=== PATIENT | female | born 1945 | race Caucasian/White ===

== ENCOUNTER 2016-09-18 12:40 | Inpatient (IN) | payer MEDICARE, OTHER ==
[2016-09-18] VITALS (11 sets, daily range): BP systolic 96–151; BP diastolic 45–76
[~2016-09-18] VITALS: Ht 157.5 cm; Wt 118.5 kg
[2016-09-18 13:22] LABS: BASO % 1 % (0-3); EOS % 3 % (0-3); HEMATOCRIT 32.5 % (36.0-47.0); HEMOGLOBIN 10.3 g/dL (12.0-15.5); LYMPH # 1.5 x10^3/uL (1.0-4.8); LYMPH % 28 % (24-48); MEAN CORPUSCULAR HEMOGLOBIN 28 pg (25-35); MEAN CORPUSCULAR HGB CONC 32 g/dL (31-37); MEAN CORPUSCULAR VOLUME 89 fL (79-100); MONO % 8 % (0-9); NEUT % 61 % (31-73); PLATELET COUNT 61 x10^3/uL (140-400); RED BLOOD COUNT 3.67 x10^6/uL (3.50-5.40); WHITE BLOOD COUNT 5.6 x10^3/uL (4.0-11.0)
[2016-09-18 13:26] LABS: CALCIUM 9.7 mg/dL (8.5-10.1); CREATININE 0.9 mg/dL (0.6-1.0); GFR 61.5; POTASSIUM 4.5 mmol/L (3.5-5.1)
[2016-09-18 13:33] LABS: ALBUMIN 3.1 g/dL (3.4-5.0); ALBUMIN/GLOBULIN RATIO 0.8 (1.0-1.7); TOTAL BILIRUBIN 0.5 mg/dL (0.2-1.0)
[2016-09-18 13:40] LABS: INR 1.3 (0.8-1.1)
[2016-09-18] MEDS ORDERED: CONTRAST GIVEN MC PRN (14:45)
[2016-09-18] MEDS ORDERED: IOHEXOL 350 MG/ML 100ML VIAL. IV ONE (15:00)
--- NOTE | 2016-09-18 15:07 | RAD ---
Indication bleeding from the ventral abdominal wall near the umbilicus. Contrast imaging was performed. The examination was obtained during the arterial phase. Images were reformatted in the coronal and sagittal planes. Volume rendered images were also generated and reviewed. No oral contrast was administered. No prior imaging is available. 90 cc of Omnipaque 300 was administered intravenously The lung bases are clear. The liver appears unremarkable. Clips are noted in the gallbladder fossa. There is splenomegaly. The pancreas adrenal glands and kidneys appear normal. A focal mass inflammatory process or acute finding in the abdomen is not seen. The transverse colon abuts the ventral abdominal wall but, according to the ICU nurse caring for the patient, does not erode through the subcutaneous tissues and there is no open wound reported. There is a slightly prominent small venous vessel that communicates with the umbilicus and may be the source of bleeding although active bleeding into the soft tissues is not seen and no definite arterial vessel is seen in the area of reported bleeding in the abdominal wall. Bowman catheter is noted in the pelvis. A focal mass or inflammatory process in the pelvis is not seen. IMPRESSION: Splenomegaly. Slightly prominent vein near the umbilicus in the reported area of bleeding in the anterior abdominal wall. No definite arterial abnormality seen PQRS Compliance Statement: One or more of the following individualized dose reduction techniques were utilized for this examination: 1. Automated exposure control 2. Adjustment of the mA and/or kV according to patient size 3. Use of iterative reconstruction technique
[2016-09-18] MEDS ORDERED: SODI75SP NS (15:54)
[2016-09-18] MEDS ORDERED: ACET500T68 PO (15:54)
[2016-09-18] MEDS ORDERED: TEMA15CA PO (15:55)
[2016-09-18] MEDS ORDERED: MAG355OR17 PO (15:55)
[2016-09-18] MEDS ORDERED: BENZ1LOZ48 MM (15:55)
[2016-09-18] MEDS ORDERED: ALLO300T PO (15:55)
[2016-09-18] MEDS ORDERED: TRAZ100T12 PO (15:55)
[2016-09-18] MEDS ORDERED: ACET325T21 PO (15:55)
[2016-09-18] MEDS ORDERED: CHOL20004 PO (15:55)
[2016-09-18] MEDS ORDERED: MULT-207 PO (15:55)
[2016-09-18] MEDS ORDERED: BUSP15TA PO (15:55)
[2016-09-18] MEDS ORDERED: OXYC5CAP3 PO (15:55)
[2016-09-18] MEDS ORDERED: LOPE2CAP PO (15:55)
[2016-09-18] MEDS ORDERED: MAGN400T22 PO (15:55)
[2016-09-18] MEDS ORDERED: DULO30CA43 PO (15:55)
[2016-09-18] MEDS ORDERED: GABA600T2 PO (15:55)
[2016-09-18] MEDS ORDERED: DULO60CA44 PO (15:55)
[2016-09-18] MEDS ORDERED: RISP0.253 PO (15:55)
[2016-09-18] MEDS ORDERED: LORA0.5T PO (15:55)
[2016-09-18] MEDS ORDERED: CALC625T44 PO (15:55)
[2016-09-18] MEDS ORDERED: CHOL4POW2 PO (15:55)
[2016-09-18] MEDS ORDERED: GUAI5SYR PO (15:55)
[2016-09-18] MEDS ORDERED: FAMO20TA5 PO (15:55)
[2016-09-18] MEDS ORDERED: DIPH1TAB PO (15:55)
[2016-09-18] MEDS ORDERED: NYST15CR TP (15:55)
[2016-09-18] MEDS ORDERED: MAGN2400 PO (15:55)
[2016-09-18] MEDS ORDERED: DEXT1DRO7 OP (15:55)
[2016-09-18] MEDS ORDERED: SIME80TA14 PO (15:55)
[2016-09-18] MEDS ORDERED: INSU100C SQ ×2 (17:05)
[2016-09-18] MEDS ORDERED: INSU100V13 SQ (17:05)
[2016-09-18] MEDS ORDERED: DEXTROSE 50% 25 GM / 50ML DISP.SYRIN. IV PRN (17:15)
[2016-09-19] VITALS (9 sets, daily range): BP systolic 11–159; BP diastolic 48–72
[2016-09-19] MEDS ORDERED: ACETAMINOPHEN 325 MG TABLET. PO PRN (02:45)
[2016-09-19] MEDS: INSULIN ASPART 300 UNITS/3 ML INSULN.PEN SQ SCH ×4 (08:14→21:10)
--- NOTE | 2016-09-19 08:27 | PDOC2 ---
CONSULT Date of Consult Date of Consult DATE: 09/19/16 TIME: 08:19 Reason for Consult Reason for Consult: abdominal wall bleeding Referring Physician Referring Physician: Dr Muro Identification/Chief Complaint Chief Complaint bleeding Source Source: Chart review, Patient History of Present Illness Reason for Visit: Admitted from [facility]--attempted BM on stool, had a pinpoint brisk bleeding from abdomen, pressure applied and transferred to [facility]. Currently in ICU, sitting up in chair and no further bleeding. She has had multiple abdominal surgeries in the past and a very scarred abdomen, denies abdominal pain. No emesis, reports some nausea yesterday Past Medical History Past Medical History Multiple medical problems including morbidly obese, chronic kidney disease, Crohn's disease, degenerative disk disease with chronic pain, chronic use of narcotics, diabetic neuropathy, type 2 diabetes, history of head injury, hypersplenism, hypertension, lumbar spinal stenosis, hyperlipidemia, nephrolithiasis, osteoarthritis, vitamin B12 deficiency, pancytopenia at a time and thrombocytopenia Past Surgical History Past Surgical History Extensive total abdominal hysterectomy, bilateral salpingo-oophorectomy, cholecystectomy, breast biopsy, removal of liver abscesses, colonoscopy, small intestine surgery, ventral hernia repair with mesh, urethral meatoplasty, excision of soft tissue from left forearm, cystoscopy with dilatation, venogram , total knee arthroplasty, fine needle aspiration of the thyroid, tonsillectomy and appendectomy Family History Family History: Family History Unknown Social History No ALCOHOL: none Drugs: None Lives: Prison Current Medications Current Medications Current Medications Iohexol (Omnipaque 350 Mg/ml) 90 ml 1X ONCE IV Last administered on 09/18/16 15:26; Start 09/18/16 at 15:00; Stop 09/18/16 at 15:01; Status DC Info (Do NOT chart on this entry -- for MONITORING) 1 each PRN DAILY PRN MC SEE COMMENTS; Start 09/18/16 at 14:45; Stop 09/20/16 at 14:44 Insulin Aspart (Novolog) 0-5 UNITS TIDWMEALS SQ Last administered on 09/19/16 08:14; Start 09/19/16 at 08:00 Dextrose 12.5 gm PRN Q15MIN PRN IV SEE COMMENTS; Start 09/18/16 at 17:15 Acetaminophen (Tylenol) 650 mg PRN Q6HRS PRN PO MILD PAIN / TEMP Last administered on 09/19/16t 02:51; Start 09/19/16 at 02:45 Active Scripts Active Reported Levemir (Insulin Detemir) 100 Unit/1 Ml Vial 48 Unit SQ BID Humalog (Insulin Lispro) 100 Unit/1 Ml Cartridge 10 Unit SQ HS Humalog (Insulin Lispro) 100 Unit/1 Ml Cartridge 18 Unit SQ TIDAC Trazodone Hcl 100 Mg Tablet 1 Tab PO QHS Temazepam 15 Mg Capsule 1 Cap PO QHS Simethicone 80 Mg Tab.chew 80 Mg PO PRN Q6HRS PRN Risperidone 0.25 Mg Tablet 0.25 Mg PO BID Artificial Tears (Dextran 70/Hypromellose) 1 Each Droperette 1 Each OP TID PRN PRN Oxycodone Hcl 5 Mg Capsule 5 Mg PO PRN Q8HRS PRN Nystatin 15 Gm Cream..g. 1 Elvis TP BID Multi Complete-Iron Tablet (Multivitamin/Iron/Folic Acid) 1 Each Tablet 1 Each PO DAILY Mag-Oxide (Magnesium Oxide) 400 Mg Tablet 1 Tab PO TIDWMEALS Milk Of Magnesia (Magnesium Hydroxide) 2,400 Mg/10 Ml Oral.susp 2,400 Mg PO PRN QHS PRN Advanced Antacid Liquid (Mag Hydrox/Al Hydrox/Simeth) 355 Ml Oral.susp 15 Ml PO PRN AFTMEAL PRN Lorazepam 0.5 Mg Tablet 0.5 Mg PO PRN Q6HRS PRN Loperamide (Loperamide Hcl) 2 Mg Capsule 2 Mg PO QID Guaifenesin Dm Syrup (Guaifenesin/Dextromethorphan) 5 Ml Syrup 10 Ml PO PRN Q4HRS PRN Gabapentin 600 Mg Tablet 600 Mg PO TID Famotidine 20 Mg Tablet 20 Mg PO BID Duloxetine Hcl 60 Mg Capsule.dr 60 Mg PO DAILY Duloxetine Hcl 30 Mg Capsule.dr 30 Mg PO DAILY Lomotil Tablet (Diphenoxylate Hcl/Atropine) 1 Each Tablet 2 Tab PO QIDPRN PRN Cholestyramine Packet (Cholestyramine (With Sugar)) 4 Gm Powd.pack 4 Gm PO BID Vitamin D-3 (Cholecalciferol (Vitamin D3)) 2,000 Unit Capsule 1,000 Unit PO DAILY Fiber-Tabs (Calcium Polycarbophil) 625 Mg Tablet 625 Mg PO TID Buspirone Hcl 15 Mg Tablet 1 Tab PO TID Cepacol Sore Throat Lozenge (Benzocaine/Menthol) 1 Each Lozenge 1 Each MM PRN PRN Allopurinol 300 Mg Tablet 1 Tab PO DAILY Acetaminophen 325 Mg Tablet 325 Mg PO PRN PRN Acetaminophen 500 Mg Tablet 2 Tab PO DAILY Nasa Mist Saline [place] (Sodium Chloride/Sodium Bicarb) 75 Ml [place] 75 Ml NS PRN PRN Allergies Allergies: Coded Allergies: Penicillins (Verified Allergy, Intermediate, 09/18/16) adhesive tape (Verified Allergy, Intermediate, 09/18/16) meperidine (Verified Allergy, Intermediate, 09/18/16) ROS General: No: Chills, Other (fevers) PSYCHOLOGICAL ROS: No: Anxiety, Depression Eyes: No Blurry vision, No Double vision HEENT: No: Heacaches, Sore Throat Hematological and Lymphatic: YES: Other (see hpi) Respiratory: No: Cough, Shortness of breath Cardiovascular: No Chest Pain, No Palpitations Genitourinary: No Dysuria, No Hematuria Musculoskeletal: No Joint Pain, No Muscle Pain Neurological: Yes Memory Loss, Yes Numbness/Tingling Skin: No Pruritus, No Rash Physical Exam General: Alert, Cooperative, No acute distress HEENT: Atraumatic, PERRLA Lungs: Clear to auscultation, Normal air movement Heart: Regular rate, Normal S1, Normal S2, No murmurs Abdomen: Soft, Other (ND, NTTP, obese abdomen with significant scarring, visible veins in scars, no bleeding) Extremities: No clubbing, No cyanosis Skin: No rashes, No breakdown Neuro: Normal speech, Sensation intact Psych/Mental Status: Mental status NL, Mood NL MUSCULOSKELETAL: No deformity, No swelling Vitals VITALS Vital Signs Date Time Temp Pulse Resp B/P Pulse Ox O2 Delivery O2 Flow Rate FiO2 09/19/16 06:00 93 16 131/62 97 Room Air 09/19/16 04:00 98.6 98.6 Labs Labs Laboratory Tests Test 09/18/16 13:00 09/18/16 17:43 09/18/16 20:25 White Blood Count 5.6x10^3/uL (4.0-11.0) Red Blood Count 3.67x10^6/uL (3.50-5.40) Hemoglobin 10.3g/dL (12.0-15.5) Hematocrit 32.5% (36.0-47.0) Mean Corpuscular Volume 89fL (79-100) Mean Corpuscular Hemoglobin 28pg (25-35) Mean Corpuscular Hemoglobin Concent 32g/dL (31-37) Red Cell Distribution Width 17.0% (11.5-14.5) Platelet Count 61x10^3/uL (140-400) Neutrophils (%) (Auto) 61% (31-73) Lymphocytes (%) (Auto) 28% (24-48) Monocytes (%) (Auto) 8% (0-9) Eosinophils (%) (Auto) 3% (0-3) Basophils (%) (Auto) 1% (0-3) Neutrophils # (Auto) 3.4x10^3uL (1.8-7.7) Lymphocytes # (Auto) 1.5x10^3/uL (1.0-4.8) Monocytes # (Auto) 0.4x10^3/uL (0.0-1.1) Eosinophils # (Auto) 0.2x10^3/uL (0.0-0.7) Basophils # (Auto) 0.0x10^3/uL (0.0-0.2) Prothrombin Time 15.0SEC (11.7-14.0) Prothromb Time International Ratio 1.3 (0.8-1.1) Activated Partial Thromboplast Time 34SEC (24-38) Sodium Level 141mmol/L (136-145) Potassium Level 4.5mmol/L (3.5-5.1) Chloride Level 102mmol/L (98-107) Carbon Dioxide Level 32mmol/L (21-32) Anion Gap 7 (6-14) Blood Urea Nitrogen 16mg/dL (7-20) Creatinine 0.9mg/dL (0.6-1.0) Estimated GFR (Cockcroft-Gault) 61.5 BUN/Creatinine Ratio 18 (6-20) Glucose Level 133mg/dL (70-99) Calcium Level 9.7mg/dL (8.5-10.1) Total Bilirubin 0.5mg/dL (0.2-1.0) Aspartate Amino Transf (AST/SGOT) 44U/L (15-37) Alanine Aminotransferase (ALT/SGPT) 30U/L (14-59) Alkaline Phosphatase 88U/L (46-116) Total Protein 7.0g/dL (6.4-8.2) Albumin 3.1g/dL (3.4-5.0) Albumin/Globulin Ratio 0.8 (1.0-1.7) Glucose (Fingerstick) 114mg/dL (70-99) 214mg/dL (70-99) Laboratory Tests Test 09/18/16 13:00 09/18/16 17:43 09/18/16 20:25 White Blood Count 5.6x10^3/uL (4.0-11.0) Red Blood Count 3.67x10^6/uL (3.50-5.40) Hemoglobin 10.3g/dL (12.0-15.5) Hematocrit 32.5% (36.0-47.0) Mean Corpuscular Volume 89fL (79-100) Mean Corpuscular Hemoglobin 28pg (25-35) Mean Corpuscular Hemoglobin Concent 32g/dL (31-37) Red Cell Distribution Width 17.0% (11.5-14.5) Platelet Count 61x10^3/uL (140-400) Neutrophils (%) (Auto) 61% (31-73) Lymphocytes (%) (Auto) 28% (24-48) Monocytes (%) (Auto) 8% (0-9) Eosinophils (%) (Auto) 3% (0-3) Basophils (%) (Auto) 1% (0-3) Neutrophils # (Auto) 3.4x10^3uL (1.8-7.7) Lymphocytes # (Auto) 1.5x10^3/uL (1.0-4.8) Monocytes # (Auto) 0.4x10^3/uL (0.0-1.1) Eosinophils # (Auto) 0.2x10^3/uL (0.0-0.7) Basophils # (Auto) 0.0x10^3/uL (0.0-0.2) Prothrombin Time 15.0SEC (11.7-14.0) Prothromb Time International Ratio 1.3 (0.8-1.1) Activated Partial Thromboplast Time 34SEC (24-38) Sodium Level 141mmol/L (136-145) Potassium Level 4.5mmol/L (3.5-5.1) Chloride Level 102mmol/L (98-107) Carbon Dioxide Level 32mmol/L (21-32) Anion Gap 7 (6-14) Blood Urea Nitrogen 16mg/dL (7-20) Creatinine 0.9mg/dL (0.6-1.0) Estimated GFR (Cockcroft-Gault) 61.5 BUN/Creatinine Ratio 18 (6-20) Glucose Level 133mg/dL (70-99) Calcium Level 9.7mg/dL (8.5-10.1) Total Bilirubin 0.5mg/dL (0.2-1.0) Aspartate Amino Transf (AST/SGOT) 44U/L (15-37) Alanine Aminotransferase (ALT/SGPT) 30U/L (14-59) Alkaline Phosphatase 88U/L (46-116) Total Protein 7.0g/dL (6.4-8.2) Albumin 3.1g/dL (3.4-5.0) Albumin/Globulin Ratio 0.8 (1.0-1.7) Glucose (Fingerstick) 114mg/dL (70-99) 214mg/dL (70-99) Assessment/Plan Assessment/Plan abdominal wall bleeding, now resolved, ? venous thrombocytopenia, plts are 61 which is improved from 09/13- 39 hgb stable 10.3, on 14-9.6 splenomegaly, hx of thrombocytopenia, extensive surgical hx, morbid obesity, DM no active bleeding abdominal binder when up no surgical plans, will review with YESENIA Singer APRN Sep 19, 2016 08:27
[2016-09-19 10:12] LABS: BASO % 1 % (0-3); EOS % 1 % (0-3); HEMATOCRIT 26.8 % (36.0-47.0); HEMOGLOBIN 8.7 g/dL (12.0-15.5); LYMPH # 1.1 x10^3/uL (1.0-4.8); LYMPH % 20 % (24-48); MEAN CORPUSCULAR HEMOGLOBIN 28 pg (25-35); MEAN CORPUSCULAR HGB CONC 33 g/dL (31-37); MEAN CORPUSCULAR VOLUME 87 fL (79-100); MONO % 6 % (0-9); NEUT % 72 % (31-73); PLATELET COUNT 56 x10^3/uL (140-400); RED BLOOD COUNT 3.08 x10^6/uL (3.50-5.40); RED CELL DISTRIBUTION WIDTH 17.2 % (11.5-14.5); WHITE BLOOD COUNT 5.4 x10^3/uL (4.0-11.0)
[2016-09-19 10:30] LABS: CALCIUM 9.1 mg/dL (8.5-10.1); CREATININE 0.9 mg/dL (0.6-1.0); GFR 61.5; POTASSIUM 4.7 mmol/L (3.5-5.1); TOTAL BILIRUBIN 0.6 mg/dL (0.2-1.0); TOTAL PROTEIN 6.1 g/dL (6.4-8.2)
--- NOTE | 2016-09-19 11:35 | HP ---
ADMIT DATE: 09/19/2016 HISTORY OF PRESENT ILLNESS: The patient is a 70-year-old female patient who was admitted to [facility]. She was referred from [facility] on account of worsening symptoms of depression, anxiety, agitation, dangerous behaviors, marked psychotic symptoms, paranoia or delusions. She was stabilized at [facility] and developed fever and possible upper respiratory tract infection, was transferred to [facility] and after she was medically stabilized, she went back for inpatient psychiatric stabilization as she is refusing care and intermittent agitation. Apparently yesterday while in the bathroom having a bowel movement, she started bleeding excessively from her abdomen and I was told that she has there abdominal wound and was transferred to the ICU in [facility]. By the time she arrived here, it turned out that she is bleeding from a pinpoint source and it turned out that she has multiple veins around her umbilical area; however, there was no obvious dehiscence of any of her wounds. She is known to have splenomegaly and thrombocytopenia, although the specifics why she has splenomegaly is not clear to me. PAST MEDICAL HISTORY: Significant for chronic kidney disease, hypertension, Crohn's disease, diabetes mellitus, peripheral neuropathy, and past psychiatric history significant for depression, mood swings, paranoia, and psychotic symptoms. PAST SURGICAL HISTORY: She had numerous abdominal surgeries and her abdominal wall is scarred; however, I do not have all the details. ALLERGIES: She is allergic to PAPER TAPE, DEMEROL, AND PENICILLIN. MEDICATIONS: She was on following medications at the [facility]. She was on acetaminophen 1000 mg twice a day and 650 mg every 4 hours as needed, allopurinol 300 mg once a day, Cepacol sore throat lozenges 1 every 4 hours as needed, buspirone 15 mg 3 times a day, calcium polycarbophil 625 mg 3 times a day, cholecalciferol 2000 international units once a day, cholestyramine 4 g b.i.d., Artificial Tears 1 drop to both eyes 3 times a day, diphenoxylate/atropine (Lomotil) 2 tablets q.i.d., duloxetine 30 mg once a day, duloxetine 60 mg once a day, famotidine 20 mg p.o. b.i.d., gabapentin 600 mg 3 times a day, guaifenesin DM 10 mL every 4 hours as needed. She is on Levemir insulin 48 units subcutaneous twice a day and Humalog insulin 18 units before meals 3 times a day and she is also on Humalog 10 units at bedtime. She is on loperamide 2 mg 4 times a day, lorazepam 0.5 mg every 6 hours. She is on milk of magnesia 30 mL p.o. daily p.r.n. for constipation, nystatin cream applied topically twice a day, oxycodone 5 mg every 8 hours, risperidone 0.25 mg twice a day, nasal saline spray 1 spray to each nostril 4 times a day, temazepam 50-mg capsule at bedtime, and trazodone 100 mg at bedtime. FAMILY HISTORY: Noncontributory. SOCIAL HISTORY: The patient resides at [facility]. She does not smoke, drink alcohol, or use any recreational drugs. PHYSICAL EXAMINATION: GENERAL: On arrival to the ICU. She looked well and was clearly in no apparent respiratory distress, pale, but no jaundice, cyanosis, or thyromegaly. No jugular venous distention. No limb edema. VITAL SIGNS: Her heart rate was 90, blood pressure was 96/72, temperature was 97.8, respiratory rate was 20, and oxygen saturation was 98%. HEENT: Normocephalic, atraumatic. NECK: Supple. HEART: Showed normal first and second heart sounds with no gallop, rub, or murmur. CHEST: Clear to auscultation. No crepitation or rhonchi. ABDOMEN: Distended, soft. There is no dehiscence; however, she has pinpoint bleeding from a single vein and pressure was applied to it to stop the bleeding. There is no guarding or rigidity. No organomegaly. Hernial orifices intact. Bowel sounds normal. NEUROLOGIC: She was awake, alert, responding appropriately. Cranial nerves intact. EXTREMITIES: She moves extremities without difficulty, although she is mostly bed bound. LABORATORY DATA: Showed a white cell count of 5600, hemoglobin 10, hematocrit 32, MCV 89, and platelet count of 61,000. Her chemistry showed a serum sodium 141, potassium 4.5, chloride 102, bicarbonate 32, anion gap of 7, BUN 16, creatinine 0.9, estimated GFR was 61 mL/minute. Her glucose 133, calcium was 9.7. Total bilirubin, AST, ALT, alkaline phosphatase were normal. Total protein 7, albumin 3.1. Her prothrombin time was 15, INR 1.3, and PTT was 34. Her nasal screen for MRSA by PCR was negative. She did have a CT angio of the abdomen and pelvis, which basically showed that the patient has splenomegaly. She has slightly prominent veins near the umbilicus in the reported area of bleeding in the anterior abdominal wall. No definite arterial abnormalities seen. She does have clear lung bases. The liver appears unremarkable . Clips are noted in the gallbladder fossa. There is study splenomegaly. The pancreas, adrenal glands and kidneys are normal. A focal mass, inflammatory process, or acute finding in the abdomen is not seen. The transverse colon abuts the ventral abdominal wall, but according to the ICU nurse caring for the patient does not erode through the subcutaneous tissue. There is no open wound reported. There is slightly prominent small venous vessel that communicates with the umbilicus and may be the source of bleeding, although active bleeding into the soft tissue is not seen. No definite arterial vessel was seen in the area of reported bleeding in the abdominal wall. Bowman catheter is noted in the pelvis. A focal mass or inflammatory process is the pelvis not seen. ASSESSMENT AND PLAN: The patient was kept for observation in the ICU. We will monitor her lab work and if she remained hemodynamically stable, we will probably transfer her back. We did consult the surgical team and she was seen in fact by the nurse practitioner. The impression is that the patient has venous bleed from the abdominal wall compounded by the fact that she has thrombocytopenia. By the time she was evaluated, there was no active bleeding and abdominal binder was recommended when up and no surgical plans were contemplated. PENNY LLANOS MD DR: MYRIAM/lizzie JOB#: [id number] / [id number]
--- NOTE | 2016-09-19 13:24 | PDOC2 ---
GI CONSULT Reason For Consult: Arcadio forbes HPI: HPI: Transferred from [facility] to [facility] for paranoia, then admitted to ICU at [facility]. Seen earlier this morning; history from chart, RN. Apparently had significant "pinpoint" bleeding from her abdomen after straining. Per RN, has since had a normal BM and has had no further bleeding. Currently sitting at nurses' station, eating. No abd pain, n/v, reflux/heartburn, constipation. Does note usual pattern of diarrhea; GI history significant for multiple abd surgeries and h/o Crohn's disease s/p bowel resections. Says she's going home today. Hgb 8.7, plt 56, transfusion ordered. PMH: PMH: from chart - obesity, DM w/ neuropathy, HTN, HLD, CKD, nephrolithiasis, Crohn's disease, chronic pain/narcotic use, DJD, lumbar stenosis, OA, nephrolithiasis, splenomegaly, thrombocytopenia, psych issues, vit B12 deficiency, hysterectomy, BSO, cholecystectomy, breast biopsy, removal of liver abscesses, small bowel resections, ventral hernia repair (mesh), ventral hernia repair with mesh, urethral meatoplasty, cystoscopy w/ dilatation, total knee arthroplasty, tonsillectomy, appendectomy Social History: Smoke: No ALCOHOL: none Drugs: None ROS: GEN: Denies fevers, chills, sweats HEENT: Denies blurred vision, sore throat CV: Denies chest pain RESP: Denies shortness of air GI: Per HPI : Denies hematuria ENDO: Denies weight changes NEURO: Denies dizziness MSK: +weakness SKIN: Denies jaundice, pruritus VItals: Vitals: Vital Signs Date Time Temp Pulse Resp B/P Pulse Ox O2 Delivery O2 Flow Rate FiO2 09/19/16 08:24 Room Air 09/19/16 06:00 93 16 131/62 97 09/19/16 04:00 98.6 98.6 Labs: Labs: Laboratory Tests Test 09/18/16 17:43 09/18/16 20:25 09/19/16 08:08 09/19/16 10:00 Glucose (Fingerstick) 114mg/dL (70-99) 214mg/dL (70-99) 179mg/dL (70-99) White Blood Count 5.4x10^3/uL (4.0-11.0) Red Blood Count 3.08x10^6/uL (3.50-5.40) Hemoglobin 8.7g/dL (12.0-15.5) Hematocrit 26.8% (36.0-47.0) Mean Corpuscular Volume 87fL (79-100) Mean Corpuscular Hemoglobin 28pg (25-35) Mean Corpuscular Hemoglobin Concent 33g/dL (31-37) Red Cell Distribution Width 17.2% (11.5-14.5) Platelet Count 56x10^3/uL (140-400) Neutrophils (%) (Auto) 72% (31-73) Lymphocytes (%) (Auto) 20% (24-48) Monocytes (%) (Auto) 6% (0-9) Eosinophils (%) (Auto) 1% (0-3) Basophils (%) (Auto) 1% (0-3) Neutrophils # (Auto) 3.9x10^3uL (1.8-7.7) Lymphocytes # (Auto) 1.1x10^3/uL (1.0-4.8) Monocytes # (Auto) 0.3x10^3/uL (0.0-1.1) Eosinophils # (Auto) 0.1x10^3/uL (0.0-0.7) Basophils # (Auto) 0.0x10^3/uL (0.0-0.2) Sodium Level 139mmol/L (136-145) Potassium Level 4.7mmol/L (3.5-5.1) Chloride Level 102mmol/L (98-107) Carbon Dioxide Level 29mmol/L (21-32) Anion Gap 8 (6-14) Blood Urea Nitrogen 16mg/dL (7-20) Creatinine 0.9mg/dL (0.6-1.0) Estimated GFR (Cockcroft-Gault) 61.5 BUN/Creatinine Ratio 18 (6-20) Glucose Level 219mg/dL (70-99) Calcium Level 9.1mg/dL (8.5-10.1) Total Bilirubin 0.6mg/dL (0.2-1.0) Aspartate Amino Transf (AST/SGOT) 39U/L (15-37) Alanine Aminotransferase (ALT/SGPT) 27U/L (14-59) Alkaline Phosphatase 75U/L (46-116) Total Protein 6.1g/dL (6.4-8.2) Albumin 3.0g/dL (3.4-5.0) Albumin/Globulin Ratio 1.0 (1.0-1.7) Test 09/19/16 12:12 Glucose (Fingerstick) 199mg/dL (70-99) Allergies: Coded Allergies: Penicillins (Verified Allergy, Intermediate, 09/18/16) adhesive tape (Verified Allergy, Intermediate, 09/18/16) meperidine (Verified Allergy, Intermediate, 09/18/16) Medications: Current Medications Medications (Trade) Dose Ordered Sig/Stefan Route PRN Reason Start Time Stop Time Status Last Admin Dose Admin Iohexol (Omnipaque 350 Mg/ml) 90 ml 1X ONCE IV 09/18/16 15:00 09/18/16 15:01 DC 09/18/16 15:26 Insulin Aspart (Novolog) 0-5 UNITS TIDWMEALS SQ 09/19/16 08:00 09/19/16 12:00 Acetaminophen (Tylenol) 650 mg PRN Q6HRS PRN PO MILD PAIN / TEMP 09/19/16 02:45 09/19/16 02:51 Imaging: Imaging: CTA 09/18/16 IMPRESSION: Splenomegaly. Slightly prominent vein near the umbilicus in the reported area of bleeding in the anterior abdominal wall. No definite arterial abnormality seen. PE: GEN: NAD, sitting at nurses' station eating breakfast - able to walk back into room to sit in chair for exam HEENT: Atraumatic, PERRL LUNGS: CTAB HEART: RRR ABD: obese, significant scarring w/ superficial non-bleeding veins, non-tender EXTREMITY: No edema SKIN: No rashes, no jaundice NEURO/PSYCH: A & O 3 A/P: A/P: Bleeding from abd wall, superficial veins after straining H/o multiple abdominal surgeries w/ significant scarring H/o Crohn's disease w/ bowel resections Anemia, thrombocytopenia -w/ splenomegaly -- Bleeding has resolved. Note DC plans - okay per GI. KATELYN RBUY Sep 19, 2016 13:24
[2016-09-19] MEDS ORDERED: FUROSEMIDE 40 MG/4 ML VIAL IVP ONE (14:15)
[2016-09-19] MEDS ORDERED: MAG HYDROX/ALUMINUM HYD/SIMETH 30 ML ORAL.SUSP PO PRN (16:30)
[2016-09-19] MEDS ORDERED: BENZOCAINE/MENTHOL LOZENGE. MM PRN (16:30)
[2016-09-19] MEDS ORDERED: MAGNESIUM HYDROXIDE 2,400 MG/30 ML ORAL.SUSP. PO PRN (16:30)
[2016-09-19] MEDS ORDERED: POLYVINYL ALCOHOL 1.4% OPHTH SOLUTION 15ML BOTTLE. OU PRN (16:30)
[2016-09-19] MEDS ORDERED: SIMETHICONE 80 MG TAB.CHEW PO PRN (16:30)
[2016-09-19] MEDS ORDERED: DIPHENOXYLATE/ATROPINE TABLET. PO PRN (16:30)
[2016-09-19] MEDS ORDERED: GUAIFENESIN DM 200MG/20MG 10 ML SYRUP. PO PRN (16:30)
[2016-09-19] MEDS: LOPERAMIDE 2 MG CAPSULE PO SCH ×2 (16:45→20:55)
[2016-09-19] MEDS: LORAZEPAM 0.5 MG TABLET. PO PRN (16:45)
[2016-09-19] MEDS: MAGNESIUM OXIDE 400 MG TABLET PO SCH (16:45)
[2016-09-19] MEDS: busPIRone 5 MG TABLET. PO SCH ×2 (16:49→20:55)
[2016-09-19] MEDS: DULOXETINE HCL 30 MG CAPSULE.DR. PO SCH ×2 (16:49→16:52)
[2016-09-19] MEDS: GABAPENTIN 300 MG CAPSULE. PO SCH ×2 (16:52→20:56)
[2016-09-19] MEDS ORDERED: CHOLECALCIFEROL 1000 UNIT PO SCH (17:00)
[2016-09-19] MEDS ORDERED: SODIUM CHLORIDE 0.65% NASAL SPRAY 45ML BOTTLE. NS PRN (17:00)
[2016-09-19] MEDS: MULTIVITAMIN with MINERAL TABLET. PO SCH (17:25)
[2016-09-19] MEDS: ALLOPURINOL 300 MG TABLET. PO SCH (17:25)
[2016-09-19] MEDS: OXYCODONE IR 5 MG TABLET. PO PRN (18:35)
[2016-09-19] MEDS: TEMAZEPAM 15 MG CAPSULE PO SCH (20:54)
[2016-09-19] MEDS: FAMOTIDINE 20 MG TABLET. PO SCH (20:54)
[2016-09-19] MEDS: risperiDONE 0.25 MG TABLET. PO SCH (20:55)
[2016-09-19] MEDS: CALCIUM POLYCARBOPHIL 625 MG TABLET PO SCH (20:56)
[2016-09-19] MEDS: traZODone 100 MG TABLET. PO SCH (20:56)
[2016-09-19] MEDS: CHOLESTYRAMINE/ASPARTAME 4 GM PACKET PO SCH (20:57)
[2016-09-19] MEDS: NYSTATIN 100,000 UNIT/GM TOPICAL CREAM 15GM TUBE. TP SCH (21:10)
[2016-09-19] MEDS: INSULIN DETEMIR 300 UNITS/3 ML INSULN.PEN. SQ SCH (21:10)
--- NOTE | 2016-09-19 21:38 | DS ---
DATE OF DISCHARGE: 09/19/2016 HOSPITAL COURSE: The patient is a 70-year-old female patient who was at [facility] for inpatient psychiatric stabilization, who was having bowel movement and started bleeding profusely from the abdominal wall. The nursing staff ____ abdominal wound. She has extensive blood loss all over and the pressure was applied and was transferred to ICU at [facility] where close examination showed that she has venous bleeding around the umbilicus area. She has had a CT angio of the abdomen and pelvis that showed that she has splenomegaly, but no arterial bleed. The pressure was applied and the patient remained stable. She remained hemodynamically stable. Her H and H, she dropped a little bit a 8.7 and 26.8 and as she remained hemodynamically stable, a decision was made to discharge her back to [facility] to continue on all her home medications. PHYSICAL EXAMINATION: GENERAL: When I saw her this morning, she was resting slightly propped up in her recliner in no apparent respiratory distress. She was pale, but no jaundice, cyanosis or thyromegaly. No jugular venous distention. No limb edema. VITAL SIGNS: Her heart rate was 93, blood pressure 131/62, temperature was 98.6, respiratory rate was 16, and oxygen saturation was 97%. HEAD, EYES, EARS, NOSE AND THROAT: Showed normocephalic atraumatic. NECK: Supple. HEART: Showed normal first and second heart sounds. No gallop, rub or murmur. CHEST: Clear to auscultation. No crepitation or rhonchi. ABDOMEN: Distended, soft with prominent veins around the upper end of her multiple scars of abdominal wall that is not actively bleeding. There is no guarding or rigidity. No organomegaly. Hernial orifices intact. Bowel sounds normal. NEUROLOGIC: She is awake, alert, at times confused and paranoid, but all her cranial nerves are intact. She actually even managed to ambulate without assistance or assistive devices. LABORATORY DATA: This morning showed a white cell count of 5400, hemoglobin 8.7, hematocrit 26.8, MCV 87 and platelet count of 56,000. Her serum sodium was 139, potassium 4.7, chloride 102, bicarbonate 29, anion gap of 8, BUN 16, creatinine 0.9, estimated GFR was 61 mL per minute. Her glucose is 219 and calcium was 9.7. Total bilirubin, AST, ALT, alkaline phosphatase were normal. Total protein was 6.1, albumin 3. DISCHARGE MEDICATIONS: She will be discharged home to continue on following medications: Acetaminophen 650 mg every 4 hours as needed, allopurinol 300 mg once a day, Cepacol sore throat lozenges 1 lozenge every 2 hours as needed, buspirone 15 mg 3 times a day, calcium polycarbophil 625 mg 3 times a day, cholecalciferol 2000 International Units once a day, cholestyramine 4 g twice a day, artificial tears 1 drop to both eyes 3 times a day, diphenoxylate ____ 2 tablets 4 times a day, duloxetine 90 mg once a day, famotidine 20 mg twice a day, gabapentin 600 mg 3 times a day, guaifenesin/dextromethorphan 10 mL every 4 hours as needed. She is on insulin Levemir 48 units twice a day, Humulin N 17 units before meals and 10 units at bedtime, loperamide 2 mg 4 times a day, lorazepam 0.5 mg every 6 hours, milk of magnesia 30 mL p.o. daily p.r.n. for constipation, magnesium oxide 400 mg once a day, multivitamin with mineral one tablet once a day, nystatin cream applied topically twice a day, oxycodone 5 mg every 8 hours, and risperidone 0.25 mg b.i.d., simethicone 80 mg every 6 hours, saline spray one spray to each nostril as needed, temazepam 15 mg capsule at bedtime and trazodone 100 mg at bedtime. FINAL DISCHARGE DIAGNOSES: 1. Acute blood loss anemia. It was a venous bleed around the upper end of the abdominal scar that has subsided. There is no arterial bleed. 2. Type 2 diabetes mellitus. 3. Insomnia. 4. Hypertension. 5. Crohn disease. 6. Peripheral neuropathy. 7. Chronic kidney disease. PENNY LLANOS MD DR: MYRIAM/lizzie JOB#: [id number] / [id number]
[2016-09-20 03:36] VITALS: BP 150/57
[2016-09-20 07:15] VITALS: BP 143/57
[2016-09-20] MEDS: MAGNESIUM OXIDE 400 MG TABLET PO SCH ×3 (08:00→17:25)
[2016-09-20] MEDS: INSULIN ASPART 300 UNITS/3 ML INSULN.PEN SQ SCH ×7 (08:00→20:55)
[2016-09-20] MEDS: CHOLESTYRAMINE/ASPARTAME 4 GM PACKET PO SCH ×2 (08:37→20:50)
[2016-09-20] MEDS: MULTIVITAMIN with MINERAL TABLET. PO SCH (08:38)
[2016-09-20] MEDS: busPIRone 5 MG TABLET. PO SCH ×3 (08:38→20:48)
[2016-09-20] MEDS: ACETAMINOPHEN 500 MG TABLET PO SCH (08:38)
[2016-09-20] MEDS: DULOXETINE HCL 30 MG CAPSULE.DR. PO SCH ×2 (08:38→08:46)
[2016-09-20] MEDS: GABAPENTIN 300 MG CAPSULE. PO SCH ×3 (08:39→20:48)
[2016-09-20] MEDS: FAMOTIDINE 20 MG TABLET. PO SCH ×2 (08:39→20:48)
[2016-09-20] MEDS: LOPERAMIDE 2 MG CAPSULE PO SCH ×4 (08:39→20:48)
[2016-09-20] MEDS: risperiDONE 0.25 MG TABLET. PO SCH ×2 (08:39→20:48)
[2016-09-20] MEDS: CHOLECALCIFEROL (VITAMIN D3) 1,000 UNIT TABLET PO SCH (08:40)
[2016-09-20] MEDS: ALLOPURINOL 300 MG TABLET. PO SCH (08:40)
[2016-09-20] MEDS: CALCIUM POLYCARBOPHIL 625 MG TABLET PO SCH ×3 (08:40→20:48)
[2016-09-20] MEDS: NYSTATIN 100,000 UNIT/GM TOPICAL CREAM 15GM TUBE. TP SCH ×2 (08:47→20:56)
[2016-09-20] MEDS: OXYCODONE IR 5 MG TABLET. PO PRN (11:20)
[2016-09-20] MEDS: INSULIN DETEMIR 300 UNITS/3 ML INSULN.PEN. SQ SCH ×2 (11:27→20:54)
[2016-09-20 11:28] VITALS: BP 131/64
[2016-09-20 13:52] LABS: BASO % 1 % (0-3); EOS % 3 % (0-3); HEMATOCRIT 22.7 % (36.0-47.0); HEMOGLOBIN 7.2 g/dL (12.0-15.5); LYMPH # 0.9 x10^3/uL (1.0-4.8); LYMPH % 29 % (24-48); MEAN CORPUSCULAR HEMOGLOBIN 28 pg (25-35); MEAN CORPUSCULAR HGB CONC 32 g/dL (31-37); MEAN CORPUSCULAR VOLUME 89 fL (79-100); MONO % 7 % (0-9); NEUT % 61 % (31-73); PLATELET COUNT 40 x10^3/uL (140-400); RED BLOOD COUNT 2.54 x10^6/uL (3.50-5.40); WHITE BLOOD COUNT 3.1 x10^3/uL (4.0-11.0)
[2016-09-20 14:09] LABS: CALCIUM 8.9 mg/dL (8.5-10.1); GFR 54.5; POTASSIUM 4.6 mmol/L (3.5-5.1)
[2016-09-20 14:20] LABS: PLT ESTIMATE DECREASED (ADEQUATE)
[2016-09-20 15:10] VITALS: BP 134/63
[2016-09-20 19:00] VITALS: BP 141/66
[2016-09-20] MEDS: TEMAZEPAM 15 MG CAPSULE PO SCH (20:47)
[2016-09-20] MEDS: traZODone 100 MG TABLET. PO SCH (20:47)
[2016-09-20 23:08] VITALS: BP 121/49
[2016-09-21] MEDS: ACETAMINOPHEN 325 MG TABLET. PO PRN ×3 (03:06→20:28)
--- NOTE | 2016-09-21 06:12 | PN ---
DATE: 09/20/2016 SUBJECTIVE: The patient is resting ____ comfortably in her bed, in no apparent distress. She states she has had lunch, has had no further episodes of bleeding from the abdominal wall, and nursing staff did not voice any concern. Apparently, she was supposed to be discharged back to [facility] yesterday. Apparently, the nursing staff are not willing to take her back. Our social service coordinator is calling the Adult Protective Services and they state to basically arrange for her to go back to the same nursing home facility. I did actually did all the paperwork for her to be discharged yesterday, and all her paperwork is still ready and she can be discharged any time she is accepted. OBJECTIVE: GENERAL: When I examined her this afternoon, she looked well and was clearly in no apparent respiratory distress. VITAL SIGNS: Her heart rate was 73, blood pressure 131/64, temperature was 97.2, respiratory rate was 22, and oxygen saturation was 98%. The rest of clinical examination is unremarkable, has not really changed. ASSESSMENT AND PLAN: 1. Acute blood loss anemia: It was a venous bleed around the upper end of the abdominal scar that has subsided. There is no arterial bleed. 2. Type 2 diabetes mellitus. 3. Insomnia. 4. Hypertension. 5. Crohn's disease. 6. Peripheral neuropathy. 7. Chronic kidney disease. PENNY LLANOS MD DR: MYRIAM/lizzie JOB#: [id number] / [id number]
[2016-09-21 07:00] VITALS: BP 134/57
[2016-09-21] MEDS: INSULIN ASPART 300 UNITS/3 ML INSULN.PEN SQ SCH ×7 (07:30→20:34)
[2016-09-21] MEDS: CHOLESTYRAMINE/ASPARTAME 4 GM PACKET PO SCH ×2 (08:31→20:34)
[2016-09-21] MEDS: risperiDONE 0.25 MG TABLET. PO SCH ×2 (08:31→20:28)
[2016-09-21] MEDS: CHOLECALCIFEROL (VITAMIN D3) 1,000 UNIT TABLET PO SCH (08:31)
[2016-09-21] MEDS: CALCIUM POLYCARBOPHIL 625 MG TABLET PO SCH ×3 (08:31→20:28)
[2016-09-21] MEDS: busPIRone 5 MG TABLET. PO SCH ×3 (08:31→20:28)
[2016-09-21] MEDS: FAMOTIDINE 20 MG TABLET. PO SCH ×2 (08:31→20:28)
[2016-09-21] MEDS: MAGNESIUM OXIDE 400 MG TABLET PO SCH ×3 (08:31→17:07)
[2016-09-21] MEDS: GABAPENTIN 300 MG CAPSULE. PO SCH ×3 (08:31→20:28)
[2016-09-21] MEDS: DULOXETINE HCL 30 MG CAPSULE.DR. PO SCH ×2 (08:32)
[2016-09-21] MEDS: ALLOPURINOL 300 MG TABLET. PO SCH (08:32)
[2016-09-21] MEDS: MULTIVITAMIN with MINERAL TABLET. PO SCH (08:32)
[2016-09-21] MEDS: LOPERAMIDE 2 MG CAPSULE PO SCH ×4 (08:37→20:28)
[2016-09-21] MEDS: ACETAMINOPHEN 500 MG TABLET PO SCH (08:37)
[2016-09-21] MEDS: INSULIN DETEMIR 300 UNITS/3 ML INSULN.PEN. SQ SCH ×2 (08:46→20:33)
[2016-09-21] MEDS: NYSTATIN 100,000 UNIT/GM TOPICAL CREAM 15GM TUBE. TP SCH ×2 (09:00→20:34)
--- NOTE | 2016-09-21 10:45 | PDOC ---
G I PROGRESS NOTE Subjective Asleep, not awakened. No note yesterday as anticipated discharge. Objective Others' notes reviewed. Physical Exam No PE. Review of Relevant I have reviewed the following items sophy (where applicable) has been applied. Labs Laboratory Tests Test 09/19/16 12:12 09/19/16 17:24 09/19/16 20:55 09/20/16 07:53 Glucose (Fingerstick) 199mg/dL (70-99) 214mg/dL (70-99) 190mg/dL (70-99) 124mg/dL (70-99) Test 09/20/16 11:10 09/20/16 13:30 09/20/16 16:53 09/20/16 20:50 Glucose (Fingerstick) 170mg/dL (70-99) 128mg/dL (70-99) 126mg/dL (70-99) White Blood Count 3.1x10^3/uL (4.0-11.0) Red Blood Count 2.54x10^6/uL (3.50-5.40) Hemoglobin 7.2g/dL (12.0-15.5) Hematocrit 22.7% (36.0-47.0) Mean Corpuscular Volume 89fL (79-100) Mean Corpuscular Hemoglobin 28pg (25-35) Mean Corpuscular Hemoglobin Concent 32g/dL (31-37) Red Cell Distribution Width 17.0% (11.5-14.5) Platelet Count 40x10^3/uL (140-400) Neutrophils (%) (Auto) 61% (31-73) Lymphocytes (%) (Auto) 29% (24-48) Monocytes (%) (Auto) 7% (0-9) Eosinophils (%) (Auto) 3% (0-3) Basophils (%) (Auto) 1% (0-3) Neutrophils # (Auto) 1.9x10^3uL (1.8-7.7) Lymphocytes # (Auto) 0.9x10^3/uL (1.0-4.8) Monocytes # (Auto) 0.2x10^3/uL (0.0-1.1) Eosinophils # (Auto) 0.1x10^3/uL (0.0-0.7) Basophils # (Auto) 0.0x10^3/uL (0.0-0.2) Platelet Estimate Decreased (ADEQUATE) Sodium Level 145mmol/L (136-145) Potassium Level 4.6mmol/L (3.5-5.1) Chloride Level 109mmol/L (98-107) Carbon Dioxide Level 33mmol/L (21-32) Anion Gap 3 (6-14) Blood Urea Nitrogen 12mg/dL (7-20) Creatinine 1.0mg/dL (0.6-1.0) Estimated GFR (Cockcroft-Gault) 54.5 Glucose Level 197mg/dL (70-99) Calcium Level 8.9mg/dL (8.5-10.1) Test 09/21/16 07:35 Glucose (Fingerstick) 87mg/dL (70-99) Laboratory Tests Test 09/20/16 11:10 09/20/16 13:30 09/20/16 16:53 09/20/16 20:50 Glucose (Fingerstick) 170mg/dL (70-99) 128mg/dL (70-99) 126mg/dL (70-99) White Blood Count 3.1x10^3/uL (4.0-11.0) Red Blood Count 2.54x10^6/uL (3.50-5.40) Hemoglobin 7.2g/dL (12.0-15.5) Hematocrit 22.7% (36.0-47.0) Mean Corpuscular Volume 89fL (79-100) Mean Corpuscular Hemoglobin 28pg (25-35) Mean Corpuscular Hemoglobin Concent 32g/dL (31-37) Red Cell Distribution Width 17.0% (11.5-14.5) Platelet Count 40x10^3/uL (140-400) Neutrophils (%) (Auto) 61% (31-73) Lymphocytes (%) (Auto) 29% (24-48) Monocytes (%) (Auto) 7% (0-9) Eosinophils (%) (Auto) 3% (0-3) Basophils (%) (Auto) 1% (0-3) Neutrophils # (Auto) 1.9x10^3uL (1.8-7.7) Lymphocytes # (Auto) 0.9x10^3/uL (1.0-4.8) Monocytes # (Auto) 0.2x10^3/uL (0.0-1.1) Eosinophils # (Auto) 0.1x10^3/uL (0.0-0.7) Basophils # (Auto) 0.0x10^3/uL (0.0-0.2) Platelet Estimate Decreased (ADEQUATE) Sodium Level 145mmol/L (136-145) Potassium Level 4.6mmol/L (3.5-5.1) Chloride Level 109mmol/L (98-107) Carbon Dioxide Level 33mmol/L (21-32) Anion Gap 3 (6-14) Blood Urea Nitrogen 12mg/dL (7-20) Creatinine 1.0mg/dL (0.6-1.0) Estimated GFR (Cockcroft-Gault) 54.5 Glucose Level 197mg/dL (70-99) Calcium Level 8.9mg/dL (8.5-10.1) Test 09/21/16 07:35 Glucose (Fingerstick) 87mg/dL (70-99) Medications Current Medications Iohexol (Omnipaque 350 Mg/ml) 90 ml 1X ONCE IV Last administered on 09/18/16 15:26; Start 09/18/16 at 15:00; Stop 09/18/16 at 15:01; Status DC Info (Do NOT chart on this entry -- for MONITORING) 1 each PRN DAILY PRN MC SEE COMMENTS; Start 09/18/16 at 14:45; Stop 09/20/16 at 14:44; Status DC Insulin Aspart (Novolog) 0-5 UNITS TIDWMEALS SQ Last administered on 09/19/16 17:27; Start 09/19/16 at 08:00 Dextrose 12.5 gm PRN Q15MIN PRN IV SEE COMMENTS; Start 09/18/16 at 17:15 Acetaminophen (Tylenol) 650 mg PRN Q6HRS PRN PO MILD PAIN / TEMP Last administered on 09/19/16 02:51; Start 09/19/16 at 02:45; Stop 09/19/16 at 16:29 ; Status DC Furosemide (Lasix) 40 mg 1X ONCE IVP ; Start 09/19/16 at 14:15; Stop 09/19/16 at 14:16; Status Cancel Acetaminophen (Tylenol) 325 mg PRN Q6HRS PRN PO PAIN Last administered on 03:06; Start 09/19/16 at 16:30 Acetaminophen (Tylenol) 325 mg DAILY PO Last administered on 09/21/16 08:37; Start 09/20/16 at 09:00 Allopurinol (Zyloprim) 300 mg DAILY PO Last administered on 09/21/16 08:32; Start 09/19/16 at 17:00 Throat Lozenges (Cepacol Sore Throat Lozenge) 1 calvin PRN DAILY PRN MM PAIN; Start 09/19/16 at 16:30 Calcium Polycarbophil (Fibercon) 625 mg TID PO Last administered on 09/21/16 08:31; Start 09/19/16 at 21:00 Diphenoxylate HCl/ Atropine (Lomotil) 2 tab QIDPRN PRN PO DIARRHEA; Start 09/19 at 16:30 Duloxetine HCl (Cymbalta) 30 mg DAILY PO Last administered on 09/21/16 08:32; Start 09/19/16 at 17:00 Famotidine (Pepcid) 20 mg BID PO Last administered on 09/21/16 08:31; Start at 21:00 Guaifenesin (Robitussin Dm) 10 ml PRN Q4HRS PRN PO COUGH; Start 09/19/16 at 16: 30 Loperamide HCl (Imodium) 2 mg QID PO Last administered on 09/21/16 08:37; Start 09/19/16 at 17:00 Lorazepam (Ativan) 0.5 mg PRN Q6HRS PRN PO ANXIETY Last administered on 16:45; Start 09/19/16 at 16:30 Magnesium Oxide (Magnesium Oxide) 400 mg TIDWMEALS PO Last administered on 09/21 08:31; Start 09/19/16 at 17:00 Nystatin (Mycostatin) 1 elvis BID TP Last administered on 09/21/16 09:00; Start 09/19/16 at 21:00 Risperidone (Risperdal) 0.25 mg BID PO Last administered on 09/21/16 08:31; Start 09/19/16 at 21:00 Simethicone (Gas-X) 80 mg PRN Q6HRS PRN PO GAS / BLOATING; Start 09/19/16 at 16 :30 Temazepam (Restoril) 15 mg QHS PO Last administered on 09/20/16 20:47; Start 09/19/16 at 21:00 Trazodone HCl (Desyrel) 100 mg QHS PO Last administered on 09/20/16 20:47; Start 09/19/16 at 21:00 Buspirone HCl (Buspar) 15 mg TID PO Last administered on 09/21/16 08:31; Start 09/19/16 at 16:45 Non-Formulary Medication 1,000 unit DAILY PO ; Start 09/19/16 at 17:00; Stop at 17:00; Status DC Cholestyramine Resin (Questran Light) 4 gm BID PO Last administered on 08:31; Start 09/19/16 at 21:00 Artificial Tears (Artificial Tears) 1 drop TID PRN PRN OU DRY EYE; Start at 16:30 Duloxetine HCl (Cymbalta) 60 mg DAILY PO Last administered on 09/21/16 08:32; Start 09/19/16 at 17:00 Gabapentin (Neurontin) 600 mg TID PO Last administered on 09/21/16 08:31; Start 09/19/16 at 16:45 Insulin Detemir (Levemir) 48 units BID SQ Last administered on 09/21/16 08:46 ; Start 09/19/16 at 21:00 Insulin Aspart (Novolog) 10 units QHS SQ Last administered on 09/20/16 20:55; Start 09/19/16 at 21:00 Insulin Aspart (Novolog) 18 units TIDAC SQ Last administered on 09/20/16 17:29 ; Start 09/20/16 at 07:30 Al Hydrox/Mg Hydrox/Simethicone (Mylanta Plus Xs) 15 ml PRN AFTMEAL PRN PO HEARTBURN / GAS; Start 09/19/16 at 16:30 Magnesium Hydroxide (Milk Of Magnesia) 2,400 mg PRN QHS PRN PO CONSTIPATION; Start 09/19/16 at 16:30 Multivitamins/ Calcium (Thera M Plus) 1 tab DAILY PO Last administered on 08:32; Start 09/19/16 at 17:00 Oxycodone HCl (Roxicodone) 5 mg PRN Q6HRS PRN PO MODERATE TO SEVERE PAIN Last administered on 09/20/16 11:20; Start 09/19/16 at 17:00 Sodium Chloride (Saline Mist Nasal) 1 elvis PRN Q1HR PRN NS SEE COMMENTS; Start 09/19/16 at 17:00 Vitamin D (Vitamin D3) 1,000 unit DAILY PO Last administered on 09/21/16 08:31 ; Start 09/19/16 at 17:00 Active Scripts Active Reported Levemir (Insulin Detemir) 100 Unit/1 Ml Vial 48 Unit SQ BID Humalog (Insulin Lispro) 100 Unit/1 Ml Cartridge 10 Unit SQ HS Humalog (Insulin Lispro) 100 Unit/1 Ml Cartridge 18 Unit SQ TIDAC Trazodone Hcl 100 Mg Tablet 1 Tab PO QHS Temazepam 15 Mg Capsule 1 Cap PO QHS Simethicone 80 Mg Tab.chew 80 Mg PO PRN Q6HRS PRN Risperidone 0.25 Mg Tablet 0.25 Mg PO BID Artificial Tears (Dextran 70/Hypromellose) 1 Each Droperette 1 Each OP TID PRN PRN Oxycodone Hcl 5 Mg Capsule 5 Mg PO PRN Q8HRS PRN Nystatin 15 Gm Cream..g. 1 Elvis TP BID Multi Complete-Iron Tablet (Multivitamin/Iron/Folic Acid) 1 Each Tablet 1 Each PO DAILY Mag-Oxide (Magnesium Oxide) 400 Mg Tablet 1 Tab PO TIDWMEALS Milk Of Magnesia (Magnesium Hydroxide) 2,400 Mg/10 Ml Oral.susp 2,400 Mg PO PRN QHS PRN Advanced Antacid Liquid (Mag Hydrox/Al Hydrox/Simeth) 355 Ml Oral.susp 15 Ml PO PRN AFTMEAL PRN Lorazepam 0.5 Mg Tablet 0.5 Mg PO PRN Q6HRS PRN Loperamide (Loperamide Hcl) 2 Mg Capsule 2 Mg PO QID Guaifenesin Dm Syrup (Guaifenesin/Dextromethorphan) 5 Ml Syrup 10 Ml PO PRN Q4HRS PRN Gabapentin 600 Mg Tablet 600 Mg PO TID Famotidine 20 Mg Tablet 20 Mg PO BID Duloxetine Hcl 60 Mg Capsule.dr 60 Mg PO DAILY Duloxetine Hcl 30 Mg Capsule.dr 30 Mg PO DAILY Lomotil Tablet (Diphenoxylate Hcl/Atropine) 1 Each Tablet 2 Tab PO QIDPRN PRN Cholestyramine Packet (Cholestyramine (With Sugar)) 4 Gm Powd.pack 4 Gm PO BID Vitamin D-3 (Cholecalciferol (Vitamin D3)) 2,000 Unit Capsule 1,000 Unit PO DAILY Fiber-Tabs (Calcium Polycarbophil) 625 Mg Tablet 625 Mg PO TID Buspirone Hcl 15 Mg Tablet 1 Tab PO TID Cepacol Sore Throat Lozenge (Benzocaine/Menthol) 1 Each Lozenge 1 Each MM PRN PRN Allopurinol 300 Mg Tablet 1 Tab PO DAILY Acetaminophen 325 Mg Tablet 325 Mg PO PRN PRN Acetaminophen 500 Mg Tablet 2 Tab PO DAILY Nasa Mist Saline [place] (Sodium Chloride/Sodium Bicarb) 75 Ml [place] 75 Ml NS PRN PRN Vitals/I & O Vital Sign - Last 24 Hours 09/20/16 09/20/16 09/20/16 09/20/16 11:28 12:20 15:10 19:00 Temp 97.2 97.6 98.2 97.2 97.6 98.2 Pulse 73 80 87 Resp 22 20 20 B/P 131/64 134/63 141/66 Pulse Ox 96 96 97 93 O2 Delivery Room Air Room Air Room Air Room Air 09/20/16 09/20/16 09/21/16 20:00 23:08 07:00 Temp 98.4 97.4 98.4 97.4 Pulse 89 99 Resp 20 B/P 121/49 134/57 Pulse Ox 94 92 O2 Delivery Room Air Room Air Room Air Intake and Output 09/20/16 09/20/16 09/21/16 15:00 23:00 07:00 Intake Total 1230 ml 360 ml 200 ml Output Total 1800 ml Balance -570 ml 360 ml 200 ml Problem List Problems Medical Problems: (1) Abdominal wound dehiscence Status: Acute (2) Acute blood loss anemia Status: Acute (3) Thrombocytopenia Status: Acute Assessment Bleeding from vein in scar; resolved. Plan of Care: Continue current Tx, Mgmt Plan of Care Note Will stand by. PAULINO ORTIZ MD Sep 21, 2016 10:45
[2016-09-21 11:00] VITALS: BP 133/62
[2016-09-21] MEDS: LORAZEPAM 0.5 MG TABLET. PO PRN (13:19)
[2016-09-21 15:06] LABS: HEMATOCRIT 23.8 % (36.0-47.0); HEMOGLOBIN 7.5 g/dL (12.0-15.5)
[2016-09-21 15:09] VITALS: BP 103/37
[2016-09-21 19:00] VITALS: BP 136/52
[2016-09-21] MEDS: traZODone 100 MG TABLET. PO SCH (20:28)
[2016-09-21] MEDS: TEMAZEPAM 15 MG CAPSULE PO SCH (20:28)
[2016-09-21 23:00] VITALS: BP 115/42
[2016-09-22] MEDS: OXYCODONE IR 5 MG TABLET. PO PRN ×2 (01:44→08:39)
[2016-09-22] MEDS: LORAZEPAM 0.5 MG TABLET. PO PRN ×2 (01:44→13:25)
--- NOTE | 2016-09-22 04:03 | PN ---
DATE: 09/21/2016 SUBJECTIVE: The patient is resting, slightly propped up in her recliner in no apparent distress. On questioning her, denied any complaint. The nursing staff did not voice any concern and stated that she had an uneventful night. PHYSICAL EXAMINATION: GENERAL: When I examined her, she looked pale, but no jaundice, cyanosis or thyromegaly. No jugular venous distension. No limb edema. VITAL SIGNS: Her heart rate was 91, blood pressure 133/62, temperature was 97.7, respiratory rate was 18 and oxygen saturation was 95%. The rest of clinical examination is unremarkable. The patient has had no further episodes of bleeding from her prominent abdominal wall veins. I did repeat her lab work yesterday, which showed a white cell count of 3100, hemoglobin 7.2, hematocrit 22.7, MCV 89 and platelet count of 40,000. Her chemistry showed a serum sodium 145, potassium 4.6, chloride 109, bicarbonate 33, anion gap of 3, BUN 12, creatinine 1, estimated GFR was 54 mL per minute. Her glucose was 197, calcium was 8.9. ASSESSMENT: 1. Acute blood loss anemia, resolved. It was venous bleed around the upper end of the abdominal scar that has subsided. There is no arterial bleed on CT angio of the abdomen. 2. Type 2 diabetes mellitus. 3. Insomnia. 4. Hypertension. 5. Crohn's disease. 6. Peripheral neuropathy. 7. Chronic kidney disease. 8. Thrombocytopenia, most likely secondary to hypersplenism. PLAN: My plan is to repeat her H and H and if the hemoglobin is equivalent to 7 or less than 7, we will type and cross and transfuse her 2 units of blood. PENNY LLANOS MD DR: MYRIAM/lizzie JOB#: [id number] / [id number]
[2016-09-22 07:00] VITALS: BP 144/62
[2016-09-22] MEDS: INSULIN ASPART 300 UNITS/3 ML INSULN.PEN SQ SCH ×4 (07:30→12:15)
[2016-09-22] MEDS: GABAPENTIN 300 MG CAPSULE. PO SCH ×2 (07:58→13:25)
[2016-09-22] MEDS: busPIRone 5 MG TABLET. PO SCH ×2 (07:58→13:26)
[2016-09-22] MEDS: ACETAMINOPHEN 500 MG TABLET PO SCH (07:59)
[2016-09-22] MEDS: ALLOPURINOL 300 MG TABLET. PO SCH (08:00)
[2016-09-22] MEDS: LOPERAMIDE 2 MG CAPSULE PO SCH ×2 (08:00→12:11)
[2016-09-22] MEDS: risperiDONE 0.25 MG TABLET. PO SCH (08:00)
[2016-09-22] MEDS: DULOXETINE HCL 30 MG CAPSULE.DR. PO SCH ×2 (08:00)
[2016-09-22] MEDS: FAMOTIDINE 20 MG TABLET. PO SCH (08:00)
[2016-09-22] MEDS: CHOLECALCIFEROL (VITAMIN D3) 1,000 UNIT TABLET PO SCH (08:01)
[2016-09-22] MEDS: MULTIVITAMIN with MINERAL TABLET. PO SCH (08:01)
[2016-09-22] MEDS: MAGNESIUM OXIDE 400 MG TABLET PO SCH ×2 (08:01→12:11)
[2016-09-22] MEDS: INSULIN DETEMIR 300 UNITS/3 ML INSULN.PEN. SQ SCH (08:14)
[2016-09-22] MEDS: CALCIUM POLYCARBOPHIL 625 MG TABLET PO SCH ×2 (09:00→13:27)
[2016-09-22] MEDS: CHOLESTYRAMINE/ASPARTAME 4 GM PACKET PO SCH (09:00)
[2016-09-22] MEDS: NYSTATIN 100,000 UNIT/GM TOPICAL CREAM 15GM TUBE. TP SCH (09:00)
[2016-09-22 10:58] VITALS: BP 122/52
--- NOTE | 2016-09-22 11:09 | PDOC ---
Objective: Objective: Per RN - DC today. Vital Signs: Vital Signs Date Time Temp Pulse Resp B/P Pulse Ox O2 Delivery O2 Flow Rate FiO2 09/22/16 10:58 98.7 90 18 122/52 95 Room Air 98.7 Labs: Laboratory Tests Test 09/21/16 14:55 09/21/16 16:01 09/21/16 20:02 09/22/16 06:57 Hemoglobin 7.5g/dL Hematocrit 23.8% Glucose (Fingerstick) 89mg/dL 134mg/dL 97mg/dL Test 09/22/16 09:53 Glucose (Fingerstick) 183mg/dL PE: GEN: NAD, sitting on edge of bed ABD: non-tender NEURO/PSYCH: appropriate A/P: Bleeding from abd scar - resolved -- DC plans today - okay per KATELYN ROSENTHAL Sep 22, 2016 11:09
--- NOTE | 2016-09-22 22:54 | DS ---
DATE OF DISCHARGE: 09/22/2016 HOSPITAL COURSE: The patient is a 70-year-old female patient who was transferred originally from [facility] where she was admitted for inpatient psychiatric stabilization. Apparently, she was having a bowel movement and started bleeding profusely from the abdominal wall. The nursing staff told that her abdominal wall dehisced and they applied pressure and was transferred to ICU at [facility] for further evaluation. However, on close examination showed it was a venous bleeding around the umbilical area. She did have a CT angio of the abdomen and pelvis, which showed that she has splenomegaly, but no arterial bleed. The pressure was applied and the patient remained stable. She remained medically stable. Her H and H remained stable. Initially the halfway refused to take care; however, eventually they agreed and the plan is to discharge her back to [facility] in [place]. PHYSICAL EXAMINATION: GENERAL: When I saw her today, she was sitting at the edge of the bed, eating her lunch comfortably in no apparent distress. On questioning her, denied any complaint. The nursing staff did not voice any concerns, she had an uneventful night. When I examined her, she looked pale, no jaundice, cyanosis, or thyromegaly. No jugular venous distention. No limb edema. VITAL SIGNS: Her heart rate was 90, blood pressure 122/52, temperature was 98.7, respiratory rate was 18 and oxygen saturation was 95% on room air. HEAD, EYES, EARS, NOSE AND THROAT: Showed normocephalic, atraumatic. NECK: Supple. HEART: Showed normal first and second heart sounds with no gallop, rub or murmur. CHEST: Clear to auscultation. No crepitation or rhonchi. ABDOMEN: Markedly distended, soft with no guarding or rigidity. No organomegaly. Hernial orifices intact. Bowel sounds normal. She continued to have very superficial veins, but none of them was actively bleeding. NEUROLOGIC: She is awake, alert, responding appropriately. Cranial nerves intact. She moves extremities without difficulty. She ambulates without assistance or assistive devices. Her intake over the last 24 hours was 1800, output was 1800. LABORATORY DATA: As of this morning, her hemoglobin was 7.5, hematocrit 24. Her blood sugars remained stable. Her serum sodium was 145, potassium 4.5, chloride 109, bicarbonate 33, anion gap of 3, BUN 12, creatinine 1, estimated GFR was 55 mL per minute. Her glucose was 197. Calcium was 8.9. She was discharged to continue on following medications. DISCHARGE MEDICATIONS: She will be discharged on Tylenol 650 mg every 4 hours as needed, allopurinol 300 mg once a day, Cepacol Sore Throat lozenges 1 every 2 hours as needed, buspirone 15 mg 3 times a day, calcium polycarbophil 625 mg 3 times a day, cholecalciferol vitamin D3 2000 units once a day, cholestyramine with sugar 1 packet twice a day, artificial tears 1 drop to both eyes 3 times a day, diphenoxylate/atropine for Lomotil two tablets 4 times a day, duloxetine 90 mg once a day, famotidine 20 mg p.o. b.i.d., gabapentin 600 mg 3 times a day, guaifenesin and dextromethorphan 10 mL every 4 hours as needed. She is on detemir insulin 48 units twice a day. She is on Humalog insulin 18 units before meals, she is also on 10 units at bedtime, loperamide 2 mg 4 times a day, lorazepam 0.5 mg every 6 hours. She is on Mylanta 15 mL 4 times a day, milk of magnesia 30 mL p.o. daily p.r.n. for constipation, magnesium oxide 400 mg 3 times a day, multivitamin with mineral 1 tablet once a day, Nystatin cream applied topically twice a day, oxycodone immediate release 5 mg every 6 hours, risperidone 0.25 mg b.i.d., simethicone 80 mg every 6 hours as needed, sodium chloride, sodium bicarbonate for nasal saline spray one spray to each nostril every 4 hours as needed, temazepam 15 mg at bedtime and trazodone 100 mg at bedtime. FINAL DISCHARGE DIAGNOSES: 1. Acute blood loss anemia. It was venous bleed around the upper end of the abdominal scar that has subsided. There is no arterial bleed. Her H and H has stabilized. 2. Type 2 diabetes mellitus. 3. Insomnia. 4. Hypertension. 5. Crohn's disease. 6. Peripheral neuropathy. 7. Chronic kidney disease. 8. Splenomegaly and persistent thrombocytopenia. PENNY LLANOS MD DR: MYRIAM/lizzie JOB#: [id number] / [id number]
== END 2016-09-22 16:14 | DRG 315 ==
LOC: 1 WEST ICU 12:47 → 5 SOUTH 09-19 18:22
PROVIDERS: ADMIT Internal Medicine; ATTEND Internal Medicine
DX: R58 Hemorrhage, not elsewhere classified (principal); D62 Acute posthemorrhagic anemia; K50.90 Crohn's disease, unspecified, without complications; Z68.42 Body mass index [BMI] 45.0-49.9, adult; R16.1 Splenomegaly, not elsewhere classified; D69.59 Other secondary thrombocytopenia; E11.22 Type 2 diabetes mellitus with diabetic chronic kidney disease; E11.42 Type 2 diabetes mellitus with diabetic polyneuropathy; E53.8 Deficiency of other specified B group vitamins; E78.5 Hyperlipidemia, unspecified; F22 Delusional disorders; G47.00 Insomnia, unspecified; G89.29 Other chronic pain; I12.9 Hypertensive chronic kidney disease with stage 1 through stage 4 chronic kidney disease, or unspecified chronic kidney disease; K43.9 Ventral hernia without obstruction or gangrene; M19.90 Unspecified osteoarthritis, unspecified site; M48.06 Spinal stenosis, lumbar region; N18.9 Chronic kidney disease, unspecified; N20.0 Calculus of kidney; E66.01 Morbid (severe) obesity due to excess calories; F32.9 Major depressive disorder, single episode, unspecified; Z87.828 Personal history of other (healed) physical injury and trauma; Z90.710 Acquired absence of both cervix and uterus; Z87.442 Personal history of urinary calculi; Z79.891 Long term (current) use of opiate analgesic; Z88.0 Allergy status to penicillin; Z88.8 Allergy status to other drugs, medicaments and biological substances; Z91.048 Other nonmedicinal substance allergy status
CPT/HCPCS: 36415; 74174; 80048; 80053; 82947; 85007; 85014; 85018; 85027; 85610; 85730; 86850; 86870; 86900; 86901; 86902; 86922; 87641; J1815; Q9967